=== PATIENT | male | born 1955 | race Caucasian/White ===

== ENCOUNTER → 2016-07-18 | Outpatient (CLI) | payer OTHER ==
[~2016-07-18] MED LIST: ASPEC81 PO; ATOR-22 PO; CITA10TA4 PO; CYAN1TAB4 PO; MULTTAB5 PO; OMEG120013 PO; SAW450CA5 PO; VITA500T2 PO; WARF-281; WARF5TAB7 PO
--- NOTE | 2016-07-18 17:50 | ECHOCARDIOGRAM REPORT ---
*NOTICE TO RECEIVING CONSTITUTION PARTY AGENCY This information is strictly Confidential and protected under [place] law. [place] law prohibits you from making any further disclosure of this information unless further disclosure is expressly permitted by the written consent of the person to whom it pertains or is authorized by law. A general authorization for the release of medical or other information is not sufficient for this purpose. Hospital accepts no responsibility if the information is made available to any other person, INCLUDING THE PATIENT. Interpretation Summary * Name: CARMINE JENSEN Study Date: 07/18/2016 12:34 PM BP: 126/76 mmHg * Patient Location: [facility] HR: 72 * : 1955 (M/d/yyyy) Gender: Male Height: 69 in * Age: 60 yrs Ethnicity: CA Weight: 172 lb * Ordering Physician: Meagan Samayoa * Referring Physician: Meagan Samayoa * Performed By: Lynn Gibbs RDCS * * Reason For Study: Patent [place]; History of Patent Foramen [place] Closure * BSA: 1.9 m2 * -- Conclusions -- * 1. Normal LV size and wall thickness. * 2. Normal LV systolic function. LVEF 55-60%. No regional wall motion abnormalities. * 3. Normal RV size and function. * 4. No significant valvular pathology. * 5. PFO closure device well-seated. No evidence of interatrial flow by color doppler or saline contrast study. * 6. No pericardial effusion. * 7. Compared with prior study on 04/04/2016: PFO closure device is new. Procedure Details * A complete two-dimensional transthoracic echocardiogram was performed (2D, M-mode, Doppler and color flow Doppler). * A saline contrast injection was performed to assess for cardiac shunting. * The injection was performed through an intravenous line in the left arm. * The attending nurse who injected the saline contrast was Silvia Llamas RN. * A total of 20 cc of agitated saline was given. Left Ventricle * The left ventricle is grossly normal size. * There is normal left ventricular wall thickness. * Ejection Fraction = 55-60%. * No regional wall motion abnormalities noted. Right Ventricle * The right ventricle is grossly normal size. * The right ventricular systolic function is normal as assessed by tricuspid annular plane systolic excursion (TAPSE) (normal >1.5 cm). Atria * The left atrial size is normal. * Right atrial size is normal. * PFO closure device well-seated. No evidence of interatrial flow by color doppler. Negative saline contrast study. Mitral Valve * The mitral valve is grossly normal. * The mitral valve leaflets appear thickened, but open well. * There is no mitral valve stenosis. * Significant mitral regurgitation is absent. Tricuspid Valve * The tricuspid valve is not well visualized, but is grossly normal. * There is no tricuspid stenosis. * Significant tricuspid regurgitation is absent. Aortic Valve * The aortic valve opens well. * The aortic valve is trileaflet. * No hemodynamically significant valvular aortic stenosis. * There is no significant aortic regurgitation. Pulmonic Valve * The pulmonary valve is inadequately visualized, but the Doppler data is adequate for interpretation. * There is no pulmonic valvular stenosis. * There is no significant pulmonary regurgitation. Great Vessels * The aortic root and proximal ascending aorta are normal sized. Pericardium/Pleural * There is no pericardial effusion. Great Vessels * Normal inferior vena cava size and collapsability with sniff indicates a normal right atrial pressure of 3 mmHg Left Ventricular Diastolic Function * Grade I diastolic dysfunction, (abnormal relaxation pattern). MMode 2D Measurements and Calculations IVSd 0.93 cm IVSs 1.0 cm LVIDd 4.7 cm LVIDs 3.5 cm LVPWd 0.81 cm LVPWs 1.4 cm IVS/LVPW 1.2 FS 25.4 % EDV(Teich) 103.8 ml ESV(Teich) 51.9 ml EF(Teich) 50.0 % EDV(cubed) 105.7 ml ESV(cubed) 43.9 ml EF(cubed) 58.4 % % IVS thick 10.6 % % LVPW thick 78.4 % LV mass(C)d 137.8 grams LV mass(C)dI 71.1 grams/m\S\2 LV mass(C)s 143.7 grams LV mass(C)sI 74.2 grams/m\S\2 SV(Teich) 51.9 ml SI(Teich) 26.8 ml/m\S\2 SV(cubed) 61.7 ml SI(cubed) 31.8 ml/m\S\2 Ao root diam 2.9 cm Ao root area 6.5 cm\S\2 ACS 2.0 cm LA dimension 2.8 cm LA/Ao 0.96 LVAd ap4 26.3 cm\S\2 LVLd ap4 7.9 cm EDV(MOD-sp4) 73.9 ml EDV(sp4-el) 74.1 ml LVAs ap4 16.1 cm\S\2 LVLs ap4 6.7 cm ESV(MOD-sp4) 33.6 ml ESV(sp4-el) 33.0 ml EF(MOD-sp4) 54.6 % EF(sp4-el) 55.5 % LVAd ap2 25.2 cm\S\2 LVLd ap2 7.6 cm EDV(MOD-sp2) 74.3 ml EDV(sp2-el) 71.5 ml LVAs ap2 15.8 cm\S\2 LVLs ap2 6.8 cm ESV(MOD-sp2) 33.6 ml ESV(sp2-el) 30.9 ml EF(MOD-sp2) 54.8 % EF(sp2-el) 56.7 % LVLd %diff -4.90 % EDV(MOD-bp) 75.7 ml LVLs %diff 1.8 % ESV(MOD-bp) 33.7 ml EF(MOD-bp) 55.5 % SV(MOD-sp4) 40.3 ml SI(MOD-sp4) 20.8 ml/m\S\2 SV(MOD-sp2) 40.7 ml SI(MOD-sp2) 21.0 ml/m\S\2 SV(MOD-bp) 42.0 ml SI(MOD-bp) 21.7 ml/m\S\2 SV(sp4-el) 41.1 ml SI(sp4-el) 21.2 ml/m\S\2 SV(sp2-el) 40.6 ml SI(sp2-el) 20.9 ml/m\S\2 Doppler Measurements and Calculations MV E max aneudy 49.0 cm/sec MV A max aneudy 53.3 cm/sec MV E/A 0.92 MV dec time 0.31 sec Ao V2 max 110.6 cm/sec Ao max PG 4.9 mmHg Ao max PG (full) 2.7 mmHg LV V1 max PG 2.2 mmHg LV V1 max 74.7 cm/sec PA V2 max 98.2 cm/sec PA max PG 3.9 mmHg
== END | disposition home or self-care (01) ==
LOC: C.CPL 12:25
PROVIDERS: ATTEND Internal Medicine Geriatric Medicine
DX: Q21.1 Atrial septal defect (principal)

== ENCOUNTER → 2016-10-15 | Outpatient (CLI) | payer OTHER ==
[2016-10-15 10:14] LABS: ESTIMATED AVERAGE GLUCOSE 134 mg/dl; HA1C FLAG Normal (Normal)
[2016-10-15 10:19] LABS: ALT/SGPT 44 U/L (12-78); BLOOD UREA NITROGEN 13 mg/dl (7-18); BUN/CREATININE RATIO 11.9 (10-20); CARBON DIOXIDE 26 mmol/L (21-32); CHLORIDE 107 mmol/L (98-107); CHOLESTEROL 145 mg/dl (0-200); GLUCOSE 102 mg/dl (70-99); POTASSIUM 4.2 mmol/L (3.5-5.1); SODIUM 140 mmol/L (136-145); TRIGLYCERIDES 75 mg/dl (0-150); VERY LOW DENSITY LIPOPROT CALC 15 mg/dl
[2016-10-15 10:24] LABS: ALB/GLOB RATIO 1.4 (0.9-2); ALKALINE PHOSPHATASE 94 U/L (45-117); AST/SGOT 29 U/L (15-37); CHOLESTEROL/HDL RATIO 3.1; HDL CHOLESTEROL 47 mg/dl; LDL CHOLESTEROL CALCULATED 83 mg/dl; PROSTATE SPECIFIC ANTIGEN 0.932 ng/ml (0.000-4.000)
== END | disposition home or self-care (01) ==
LOC: C.LAB 09:14
PROVIDERS: ATTEND Physician Assistant Medical
DX: Z00.00 Encounter for general adult medical examination without abnormal findings (principal); Q21.1 Atrial septal defect; I63.9 Cerebral infarction, unspecified; R73.9 Hyperglycemia, unspecified